=== PATIENT | female | born 1950 | race Caucasian/White ===

== ENCOUNTER → 2017-01-08 | Outpatient (CLI) | payer SELFPAY ==
--- NOTE | 2017-01-10 07:06 | MM ---
Reason for exam: screening (asymptomatic). Last mammogram was performed 1 year and 6 months ago. History: Patient is postmenopausal. Family history of breast cancer in mother and breast cancer in aunt. Physical Findings: A clinical breast exam by your physician is recommended on an annual basis and results should be correlated with mammographic findings. MG 3D Screening Mammo W/Cad Bilateral CC and MLO view(s) were taken. Prior study comparison: July 16, 2015, bilateral MG 3d screening mammo w/cad. March 12, 2013, bilateral digital screening mammo w/CAD. The breast tissue is almost entirely fat. No significant changes when compared with prior studies. ASSESSMENT: Negative, BI-RAD 1 RECOMMENDATION: Routine screening mammogram of both breasts in 1 year.
== END ==
LOC: RADMAMWWP 15:42
PROVIDERS: ATTEND Family Medicine
DX: Z12.31 Encounter for screening mammogram for malignant neoplasm of breast (principal)
CPT/HCPCS: 77063; G0202

== ENCOUNTER → 2020-07-27 | Outpatient (CLI) | payer MEDICARE, BC ==
--- NOTE | 2020-07-28 09:59 | MM ---
Reason for exam: screening (asymptomatic). Last mammogram was performed 3 years and 7 months ago. History: Patient is postmenopausal. Family history of breast cancer in mother, breast cancer in aunt, and breast cancer in maternal grandmother. Physical Findings: A clinical breast exam by your physician is recommended on an annual basis and results should be correlated with mammographic findings. MG 3D Screening Mammo W/Cad Bilateral CC and MLO view(s) were taken. Prior study comparison: January 08, 2017, bilateral MG 3d screening mammo w/cad. July 16, 2015, bilateral MG 3d screening mammo w/cad. There are scattered fibroglandular densities. There are benign appearing round, grouped calcifications in the right breast. There is no discrete abnormality. ASSESSMENT: Benign, BI-RAD 2 RECOMMENDATION: Routine screening mammogram of both breasts in 1 year.
== END | disposition home or self-care (01) ==
LOC: RADMAMWWP 07:57
PROVIDERS: ATTEND Obstetrics & Gynecology
DX: Z12.31 Encounter for screening mammogram for malignant neoplasm of breast (principal); Z80.3 Family history of malignant neoplasm of breast
CPT/HCPCS: 77063; 77067

== ENCOUNTER → 2021-03-09 | Outpatient (CLI) | payer MEDICARE, BC | END | disposition home or self-care (01) | LOC: LABWHC1 14:15 | PROVIDERS: ATTEND Family Medicine | DX: U07.1 COVID-19 (principal) | CPT/HCPCS: U0003; C9803; U0005 ==

== ENCOUNTER → 2021-08-17 | Outpatient (CLI) | payer MEDICARE, BC ==
--- NOTE | 2021-08-18 14:09 | MM ---
Reason for exam: screening (asymptomatic). Last mammogram was performed 1 year and 1 month ago. History: Patient is postmenopausal. Family history of breast cancer in mother, breast cancer in aunt, and breast cancer in maternal grandmother. Physical Findings: A clinical breast exam by your physician is recommended on an annual basis and results should be correlated with mammographic findings. MG 3D Screening Mammo W/Cad Bilateral CC and MLO view(s) were taken. Prior study comparison: July 27, 2020, bilateral MG 3d screening mammo w/cad. January 08, 2017, bilateral MG 3d screening mammo w/cad. There are scattered fibroglandular densities. There are benign appearing round calcifications bilaterally. There is no discrete abnormality. ASSESSMENT: Benign, BI-RAD 2 RECOMMENDATION: Routine screening mammogram of both breasts in 1 year.
== END | disposition home or self-care (01) ==
LOC: RADMAMWWP 12:09
PROVIDERS: ATTEND Obstetrics & Gynecology
DX: Z12.31 Encounter for screening mammogram for malignant neoplasm of breast (principal); Z80.3 Family history of malignant neoplasm of breast; Z78.0 Asymptomatic menopausal state
CPT/HCPCS: 77063; 77067

== ENCOUNTER → 2023-08-27 | Outpatient (CLI) | payer MEDICARE, BC ==
--- NOTE | 2023-08-27 16:51 | MM ---
Reason for Exam: Screening (asymptomatic). Last mammogram was performed 2 year(s) and 0 month(s) ago. Patient History: Menarche at age 12. First Full-Term at age 20. Postmenopausal. Maternal grandmother had breast cancer. Maternal aunt had breast cancer. Mother had breast cancer. Risk Values: Raina 5 year model risk: 3.6%. NCI Lifetime model risk: 9.6%. Prior Study Comparison: 01/08/2017 Bilateral Screening Mammogram, [facility]. 07/27/2020 Bilateral Screening Mammogram, [facility]. 08/17/2021 Bilateral Screening Mammogram, [facility]. Tissue Density: There are scattered fibroglandular densities. Findings: Analyzed By CAD. The pattern is symmetrical. Benign round calcifications are in the upper outer right breast. There is a 0.3 cm nodule within the 3:00 position left mid breast 7 cm from the nipple. This is new from comparison. Additional workup is recommended. Right breast:No suspicious groups of microcalcifications, spiculated or lobular masses, architectural distortion or other secondary signs of malignancy are mammographically apparent. Overall Assessment: Incomplete: need additional imaging evaluation, BI-RAD 0 Management: Diagnostic Mammogram of the left breast. A negative mammogram report should not preclude additional follow up of suspicious palpable abnormalities. Patient should continue monthly self breast exam. A clinical breast exam by your physician is recommended on an annual basis and results should be correlated with mammographic findings. Electronically signed and approved by: Mahesh Mcgowan D.O. Radiologis
== END | disposition home or self-care (01) ==
LOC: RADMAMWWP 10:49
PROVIDERS: ATTEND Obstetrics & Gynecology
DX: Z12.31 Encounter for screening mammogram for malignant neoplasm of breast (principal); Z80.3 Family history of malignant neoplasm of breast; Z78.0 Asymptomatic menopausal state
CPT/HCPCS: 77063; 77067

== ENCOUNTER → 2023-10-09 | Outpatient (CLI) | payer MEDICARE, BC ==
--- NOTE | 2023-10-09 11:08 | USB ---
Reason for Exam: Additional evaluation requested from abnormal screening. Patient History: Menarche at age 12. First Full-Term at age 20. Postmenopausal. Maternal grandmother had breast cancer. Maternal aunt had breast cancer. Mother had breast cancer. Risk Values: Raina 5 year model risk: 3.6%. NCI Lifetime model risk: 9.6%. Technique: Method: Targeted. Patient Position: Supine. Prior Study Comparison: 07/27/2020 Bilateral Screening Mammogram, [facility]. 08/17/2021 Bilateral Screening Mammogram, [facility]. 08/27/2023 Bilateral MG 3D screening mammo w/cad, [facility]. Findings: The upper section of the breast of the left breast, the axilla of the left breast and the retroareolar of the left breast were scanned. No solid or cystic masses are identified.. Overall Assessment: Probably benign, BI-RAD 3 Management: Diagnostic Mammogram of the left breast in 6 months. A clinical breast exam by your physician is recommended on an annual basis and results should be correlated with mammographic findings. This exam should not preclude additional follow-up of suspicious palpable abnormalities. Results were given to the patient verbally at the time of exam. Electronically signed and approved by: Jon Hendrix M.D. Radiologis
--- NOTE | 2023-10-09 12:50 | BD ---
EXAMINATION TYPE: Axial Bone Density DATE OF EXAM: 10/09/2023 CLINICAL HISTORY: 73 years old Female. ICD-10 CODE: Z78.0 POST MENOPAUSAL WITHOUT HRT Height: 58 Weight: 196.6 FRAX RISK QUESTIONS: Alcohol (3 or more units per day): no Family History (Parent hip fracture): no Glucocorticoids (More than 3mos): no (Ex: prednisone, prednisolone, methylprednisolone, dexamethasone, and hydrocortisone). History of Fracture in Adulthood: no Secondary Osteoporosis: 1. Type 1 Diabetes: no 2. Hyperthyroidism: no 3. Menopause before 45: no 4. Malnutrition: no 5. Chronic liver disease: no Rheumatoid Arthritis: no Current Tobacco Use: no RISK FACTORS HISTORY OF: Hip Fracture (Right/Left): no Spine Fracture: no History of Wrist Fracture: no Surgery to Spine/Hip(right/left)/Wrist (right/left): no MEDICATIONS: Thyroid Medications: no Osteoporosis Medications: no EXAM MEASUREMENTS: Bone mineral densitometry was performed using the [employer] System. Bone mineral density as measured about the Lumbar spine is: ----- L1-L4(G/cm2): 1.181 T Score Values are as follows: ----- L1: -1.6 ----- L2: -1.1 ----- L3: 0.9 ----- L4: 1.2 ----- L1-L4: 0.0 Z Score Values are as follows: ----- L1: -0.7 ----- L2: -0.2 ----- L3: 1.8 ----- L4: 2.1 ----- L1-L4: 0.9 Bone mineral density has: increased 6.4 % since study of: 07/16/2015 Bone mineral density about the R hip (g/cm2): 0.850 Bone mineral density about the L hip (g/cm2): 0.909 T Score values are as follows: -----R Neck: -2.5 -----L Neck: -2.2 -----R Total: -1.3 -----L Total: -0.8 Z Score values are as follows: -----R Neck: -1.3 -----L Neck: -1.0 -----R Total: -0.3 -----L Total: 0.2 Bone mineral density has: decreased 14.1 % since study of: 07/16/2015 FRAX%s: The graph provided illustrates a 13.5% chance for a major osteoporotic fx and a 3.4% chance f or the hips probability for fx in 10 years time. IMPRESSION: Osteopenia (T Score between -2.5 and -1). There is slightly increased risk of fracture and the patient may be considered for treatment. Re-Screen 2-5 years. NOTE: T-SCORE=SD OF THE YOUNG ADULT MEAN.
--- NOTE | 2023-10-11 14:41 | MM ---
Reason for Exam: Additional evaluation requested from abnormal screening. Last screening mammogram was performed 2 month(s) ago. Patient History: Menarche at age 12. First Full-Term at age 20. Postmenopausal. Maternal grandmother had breast cancer. Maternal aunt had breast cancer. Mother had breast cancer. Risk Values: Raina 5 year model risk: 3.6%. NCI Lifetime model risk: 9.6%. Prior Study Comparison: 07/27/2020 Bilateral Screening Mammogram, [facility]. 08/17/2021 Bilateral Screening Mammogram, [facility]. 08/27/2023 Bilateral MG 3D screening mammo w/cad, [facility]. Tissue Density: Left: There are scattered areas of fibroglandular density. Findings: Analyzed By CAD. No distinct mass or distortion. Overall Assessment: Incomplete: need additional imaging evaluation, BI-RAD 0 Management: Diagnostic Breast Ultrasound of the left breast. . Results were given to the patient verbally at the time of exam. Patient should continue monthly self-breast exams. A clinical breast exam by your physician is recommended on an annual basis. This exam should not preclude additional follow-up of suspicious palpable abnormalities. Note on Raina scores and lifetime risk: 1. A Raina score greater than 3% is considered moderate risk. If this is the case, consider specialist referral to assess eligibility for a risk reducing agent. 2. If overall lifetime risk for the development of breast cancer is 20% or higher, the patient may qualify for future screening with alternating mammogram and breast MRI. Electronically signed and approved by: Jon Hendrix M.D. Radiologis
== END | disposition home or self-care (01) ==
LOC: RADMAMWWP 09:41
PROVIDERS: ATTEND Obstetrics & Gynecology
DX: Z12.31 Encounter for screening mammogram for malignant neoplasm of breast (principal); M85.89 Other specified disorders of bone density and structure, multiple sites; Z78.0 Asymptomatic menopausal state; Z80.3 Family history of malignant neoplasm of breast
CPT/HCPCS: 77080; 77065; 76642; G0279; 77061

== ENCOUNTER → 2023-10-09 | Outpatient (CLI) | payer MEDICARE, BC | END | disposition home or self-care (01) | LOC: RADBDWWP 09:36 | PROVIDERS: ATTEND Obstetrics & Gynecology | DX: Z53.9 Procedure and treatment not carried out, unspecified reason (principal) ==